=== PATIENT | male | born 1965 | race Two or more races ===

== ENCOUNTER 2017-03-14 11:19 | Emergency (ER) | payer SELFPAY ==
[~2017-03-14] VITALS: Ht 167.6 cm; Wt 95.3 kg
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
--- NOTE | 2017-03-14 13:50 | NUR ---
Patient discharged to home in stable condition. Written and verbal after care instructions given. Patient verbalizes understanding of instruction.
[2017-03-14 13:51] VITALS: BP 144/86
== END 2017-03-14 13:56 | disposition home or self-care (01) ==
LOC: ER 11:21
DX: S13.4XXA Sprain of ligaments of cervical spine, initial encounter (principal); S20.212A Contusion of left front wall of thorax, initial encounter; S70.02XA Contusion of left hip, initial encounter; V89.2XXA Person injured in unspecified motor-vehicle accident, traffic, initial encounter; Y93.89 Activity, other specified; Y92.413 State road as the place of occurrence of the external cause; Y99.8 Other external cause status
CPT/HCPCS: 71045-TC; 72040-TC; 72170-TC; A4606; Z7610